=== PATIENT | male | born 1970 | race Caucasian/White ===

== ENCOUNTER 2017-03-21 09:32 | Emergency (ER) | payer OTHER ==
[2017-03-21 10:11] VITALS: BP 147/95
--- NOTE | 2017-03-21 10:31 | UC ---
Respiratory Complaint HPI - History of Current Complaint Chief Complaint: UCRespiratory Stated Complaint: BILAT EAR PAIN/ST Time Seen by Provider: 03/21/17 10:11 Hx Obtained From: Patient Onset/Duration: Gradual Onset, Lasting Days - This has been 4 days. Timing: Constant Severity Initially: Moderate Severity Currently: Moderate Character: Cough: Nonproductive Aggravating Factors: Deep Breaths, Recumbent Position Alleviating Factors: Upright Position, Spontaneous Resolution Associated Signs And Symptoms: Positive: Fever, URI, Nasal Congestion. Negative : Dyspnea, Calf Pain, Calf Swelling - Allergies/Home Medications Allergies/Adverse Reactions: Allergies Allergy/AdvReac Type Severity Reaction Status Date / Time Codeine Allergy Hallucinati Verified 03/21/17 10:07 ons Loperamide [From Imodium] Allergy Hives Verified 03/21/17 10:07 Penicillins Allergy Hives Verified 03/21/17 10:07 Home Medications: Home Medications Hydrochlorothiazide TAB* [Hydrodiuril TAB*] 25 mg PO DAILY 03/21/17 [History Confirmed 03/21/17] Hypertension Medication 1 cap PO DAILY 03/21/17 [History Confirmed 03/21/17] PMH/Surg Hx/FS Hx/Imm Hx Previously Healthy: No - HTN, high chol. - Surgical History Surgical History: Yes Surgery Procedure, Year, and Place: hernia repair x 3, thumb surgery, anal fissure - Family History Known Family History: Positive: None, Other - NO related respiratory FH. - Social History Occupation: Employed Full-time Alcohol Use: Weekly Substance Use Type: None Smoking Status (MU): Never Smoked Tobacco - Immunization History Most Recent Influenza Vaccination: Not the Season Review of Systems Constitutional: Fever ENT: Sore Throat, Ear Ache, Sinus Congestion Respiratory: Cough All Other Systems Reviewed And Are Negative: Yes Physical Exam Triage Information Reviewed: Yes Appearance: Well-Appearing, No Pain Distress, Well-Nourished Vital Signs: Initial Vital Signs Temp 99.7 F 03/21/17 10:05 Pulse 86 03/21/17 10:05 Resp 16 03/21/17 10:05 BP 147/95 03/21/17 10:05 Pulse Ox 99 03/21/17 10:05 Vital Signs Reviewed: Yes Eyes: Positive: Conjunctiva Clear ENT: Positive: Normal ENT inspection, Pharyngeal erythema, Nasal congestion, Uvula midline. Negative: Nasal drainage, TM bulging, TM dull, TM red - Socar ear congestion but it is clear., Tonsillar swelling, Tonsillar exudate, Trismus, Muffled voice, Hoarse voice, Dental tenderness, Sinus tenderness Neck: Positive: Supple, Nontender, No Lymphadenopathy. Negative: Nuchal Rigidity Respiratory: Positive: Lungs clear, Normal breath sounds, No respiratory distress, No accessory muscle use. Negative: Respiratory distress, Decreased breath sounds, Accessory muscle use, Crackles, Rhonchi, Stridor Cardiovascular: Positive: RRR, No Murmur, Pulses Normal, Brisk Capillary Refill Abdomen Description: Positive: No Organomegaly. Negative: Distended, Guarding Musculoskeletal: Positive: Strength Intact, ROM Intact, No Edema Neurological: Positive: Alert, Muscle Tone Normal. Negative: Fatigued Psychological: Positive: Age Appropriate Behavior Skin: Negative: rashes UC Diagnostic Evaluation - Laboratory O2 Sat by Pulse Oximetry: 99 Respiratory Course/Dx - Differential Dx/Diagnosis Provider Diagnoses: uri. viral chest cold. Discharge - Discharge Plan Condition: Good Disposition: HOME Patient Education Materials: Upper Respiratory Infection (ED) Referrals: Tomasz Villaseñor MD [Primary Care Provider] -
== END 2017-03-21 10:30 | disposition home or self-care (01) ==
LOC: UCCORT 09:32
DX: J06.9 Acute upper respiratory infection, unspecified (principal); J00 Acute nasopharyngitis [common cold]
CPT/HCPCS: 99211; G0463